=== PATIENT | female | born 1975 | race Caucasian/White ===

== ENCOUNTER 2016-04-11 14:43 | Outpatient (CLI) | payer OTHER ==
[2016-04-11 16:51] LABS: #Basophils 0.1 thou/uL (0.0-0.2); #Eosinphils 0.1 thou/uL (0.0-0.7); #Lymphocytes 1.7 thou/uL (1.20-3.40); #Monocytes 0.6 thou/uL (0.11-0.59); #Neutrophils 2.5 thou/uL (1.40-6.50); %Basophils 1.4 % (0.0-1.0); %Eosinophils 2.8 % (0.0-10.0); %Monocytes 12.2 % (0.0-10.0); Hematocrit 37.4 % (36.0-47.0); Mean Platelet Volume 5.5 fL (7.4-10.4)
[2016-04-11 17:03] LABS: CK (CPK) 55 U/L (29-168)
== END 2016-04-11 14:44 ==
LOC: HPCALD 14:43
PROVIDERS: ATTEND Family Medicine
DX: E03.9 Hypothyroidism, unspecified (principal); R53.83 Other fatigue; M79.1 Myalgia
CPT/HCPCS: 36415; 82550; 84443; 85025; 85652; 86140

== ENCOUNTER 2016-10-01 16:37 | Outpatient (CLI) | payer OTHER | END 2016-10-01 16:38 | disposition home or self-care (01) | LOC: HPCALD 16:37 | PROVIDERS: ATTEND Family Medicine | DX: Z85.850 Personal history of malignant neoplasm of thyroid (principal) | CPT/HCPCS: 36415; 84443 ==

== ENCOUNTER 2018-10-18 01:52 | Emergency (ER) | payer OTHER ==
[2018-10-18 02:13] LABS: Bilirubin Negative (Negative); Blood, Urine Large (Negative); Clarity Cloudy (Clear); Glucose, Urine (Dipstick) 100 mg/dL (Negative); Leukocyte Large (Negative); Nitrite Positive (Negative); Protein, Urine (Dipstick) > or equal to 300 mg/dL (Neg-Trace)
[2018-10-18 02:14] LABS: Pregnancy Test - Urine (BHCG) Negative (Negative); Pregu Control Background? CLEAR/WHITE (CLR/WHITE); Pregu Control Bar Appear? YES (CONTROL BAR)
[2018-10-18 02:17] LABS: Bacteria/HPF 1+ HPF (None Seen); RBC/HPF 21-50 HPF (0-3); Squamous Epithelial 0-3 HPF (0-3); WBC/HPF Greater than 50 HPF (0-3)
[2018-10-18] MEDS ORDERED: Acetaminophen/Codeine 30-300mg Tablet ONE (02:18)
[2018-10-18] MEDS ORDERED: Cephalexin 500 MG CAP ONE (02:18)
[2018-10-18] MEDS ORDERED: Ketorolac Tromethamine 60 MG/2 ML VIAL ONE (02:18)
== END 2018-10-18 02:18 | disposition home or self-care (01) ==
LOC: BURERS 01:52
DX: N12 Tubulo-interstitial nephritis, not specified as acute or chronic (principal); C73 Malignant neoplasm of thyroid gland; Z79.899 Other long term (current) drug therapy
CPT/HCPCS: 81003; 81015; 81025; 87077; 87086; 87186; 96372; 99283; J1885

== ENCOUNTER 2021-07-08 09:50 | Outpatient (CLI) | payer OTHER ==
[2021-07-08 11:09] LABS: Thyroid Stimulating Hormone 0.4465 uIU/mL (0.35-4.94)
[2021-07-08 17:52] LABS: Free T4 (Free Thyroxine) 0.94 ng/dL (0.70-1.48); T4 6.5 ug/dL (4.87-11.72)
== END 2021-07-08 09:51 | disposition home or self-care (01) ==
LOC: BURRAD 09:50
PROVIDERS: ATTEND Family Medicine
DX: M54.50 Low back pain, unspecified (principal); E03.9 Hypothyroidism, unspecified
CPT/HCPCS: 36415; 72110; 84436; 84439; 84443